=== PATIENT | female | born 1995 ===

== ENCOUNTER → 2017-11-08 | Outpatient (CLI) | payer BC ==
[2017-11-08 13:40] LABS: PLATELET COUNT, AUTOMATED 296 K/uL (150-450)
[2017-11-08 13:54] LABS: LDL CHOLESTEROL 109 mg/dl
== END ==
LOC: LAB 13:19
PROVIDERS: ATTEND Physician Assistant
DX: L70.0 Acne vulgaris (principal); Z79.899 Other long term (current) drug therapy
CPT/HCPCS: 36415; 82040; 82247; 82310; 82374; 82435; 82465; 82565; 82947; 83718; 84075; 84132; 84155; 84295; 84450; 84460; 84478; 84520; 85025

== ENCOUNTER → 2018-01-10 | Outpatient (CLI) | payer BC ==
[2018-01-10 09:02] LABS: PLATELET COUNT, AUTOMATED 238 K/uL (150-450)
[2018-01-10 09:27] LABS: LDL CHOLESTEROL 116 mg/dl
== END ==
LOC: LAB 08:35
PROVIDERS: ATTEND Physician Assistant
DX: L70.0 Acne vulgaris (principal); Z79.899 Other long term (current) drug therapy
CPT/HCPCS: 36415; 82040; 82247; 82310; 82374; 82435; 82465; 82565; 82947; 83718; 84075; 84132; 84155; 84295; 84450; 84460; 84478; 84520; 85025

== ENCOUNTER → 2018-02-10 | Outpatient (CLI) | payer BC ==
[2018-02-10 08:49] LABS: PLATELET COUNT, AUTOMATED 229 K/uL (150-450)
[2018-02-10 09:01] LABS: LDL CHOLESTEROL 97 mg/dl
== END ==
LOC: LAB 08:31
PROVIDERS: ATTEND Physician Assistant
DX: L70.0 Acne vulgaris (principal); Z79.899 Other long term (current) drug therapy
CPT/HCPCS: 36415; 82040; 82247; 82310; 82374; 82435; 82465; 82565; 82947; 83718; 84075; 84132; 84155; 84295; 84450; 84460; 84478; 84520; 85025